=== PATIENT | male | born 1955 | race Two or more races ===

== ENCOUNTER 2018-10-22 09:49 | Emergency (ER) | payer OTHER ==
[~2018-10-22] VITALS: Ht 177.8 cm; Wt 82.0 kg
[2018-10-22] MEDS ORDERED: ATOR10TA PO (09:55)
[2018-10-22] MEDS ORDERED: insulin (09:55)
[2018-10-22] MEDS ORDERED: LISI2.5T47 PO (09:55)
[2018-10-22] MEDS ORDERED: ATEN-42 PO (09:55)
[2018-10-22] MEDS ORDERED: MORPHINE SULFATE 4 MG/ML CPJ (NOT FOR IM USE) IV STA (10:35)
[2018-10-22] MEDS ORDERED: SODIUM CHLORIDE 0.9% 1,000 ML IV ONE (10:35)
[2018-10-22 10:53] LABS: BASOPHILS % 0.3 % (0.0-2.0); EOSINOPHILS % 0.2 % (0.0-5.0); HEMATOCRIT. 38.5 % (42.0-52.0); HEMOGLOBIN. 12.7 g/dL (14.0-18.0); LYMPHOCYTES % 16.6 % (20.0-50.0); MEAN CORPUSCULAR VOLUME 84.6 fL (80.0-94.0); MEAN PLATELET VOLUME 7.9 fl (7.4-10.4); MONOCYTES % 9.4 % (2.0-8.0); NEUTROPHILS % 73.5 % (40.0-76.0); PLATELET 331 x1000/uL (130-400); RED BLOOD CELL COUNT 4.55 mill/uL (4.7-6.1); RED CELL DISTRIBUTION WIDTH 14.9 % (11.6-14.6)
[2018-10-22 10:56] LABS: CHLORIDE 102 mEq/L (98-107)
[2018-10-22] MEDS ORDERED: MORPHINE SULFATE 4 MG/ML CPJ (NOT FOR IM USE) IV ONE (12:45)
[2018-10-22 14:15] VITALS: BP 155/89
== END 2018-10-22 15:14 | disposition short-term general hospital (02) ==
LOC: ER 09:49
DX: S72.91XA Unspecified fracture of right femur, initial encounter for closed fracture (principal); E11.9 Type 2 diabetes mellitus without complications; E78.00 Pure hypercholesterolemia, unspecified; I10 Essential (primary) hypertension; Z79.899 Other long term (current) drug therapy; W18.39XA Other fall on same level, initial encounter; Y93.89 Activity, other specified; Y92.89 Other specified places as the place of occurrence of the external cause; Y99.8 Other external cause status
CPT/HCPCS: 29505; 36415; 71045; 73502; 73552; 73562; 73590; 80053; 85025; 85610; 93005; 96374; 96376; 99285; J2270; J7030